=== PATIENT | female | born 1995 | race African-American/Black ===

== ENCOUNTER 2016-08-30 13:32 | Outpatient (CLI) ==
[2015-10-14 18:56] VITALS: BMI 24.5
[2016-08-30 14:19] LABS: FLU INTERNAL QC INTERNAL QC VALID; RAPID FLU A NEGATIVE (NEGATIVE); RAPID FLU B NEGATIVE (NEGATIVE)
== END 2016-08-30 13:33 | disposition home or self-care (01) ==
LOC: LAB 13:32
PROVIDERS: ATTEND Nurse Practitioner Family
DX: R52 Pain, unspecified (principal); R11.2 Nausea with vomiting, unspecified; R53.83 Other fatigue
CPT/HCPCS: 87804

== ENCOUNTER 2017-02-13 20:08 | Emergency (ER) ==
[2017-02-13 20:13] VITALS: BP 118/90; TEMP 99; BMI 26.4
[2017-02-13] MEDS ORDERED: BENADRYL IM STA (20:18)
[2017-02-13] MEDS ORDERED: DECADRON 4 MG/ML SDV IM STA (20:18)
--- NOTE | 2017-02-13 20:21 | ED.PDOC ---
General ED Provider: Dr. GEOVANNY DODSON-ER Chief Complaint: Rash Stated Complaint: franki got an itchy rash on my arms and legs --it comes and goes- -no one else has the rash Time Seen by Physician: 20:15 Mode of Arrival: Walk-In Information Source: Patient Exam Limitations: No limitations Primary Care Provider: TWIN SCOTT Nursing and Triage Documentation Reviewed and Agree: Yes Skin Complaint Exam - Skin Rash/Itching Complaint/Exam Onset/Duration: 4 weeks Symptoms Are: Still present Initial Severity: Mild Current Severity: Mild Location: arms and legs Potential Exposures: Reports: Unknown Aggravating: Reports: Heat, Clothing Associated Signs and Symptoms: Denies: Difficulty breathing, Fever, Chills Skin Findings: Present: Maculae, Dry scaly skin Differential Diagnoses: Allergic Reaction, Contact Dermatitis Review of Systems - Review Of Systems Constitutional: Reports: No symptoms Eyes: Reports: No symptoms Ears, Nose, Mouth, Throat: Reports: No symptoms Respiratory: Reports: No symptoms Cardiac: Reports: No symptoms GI: Reports: No symptoms : Reports: No symptoms Musculoskeletal: Reports: No symptoms Skin: Reports: Rash Neurological: Reports: No symptoms Endocrine: Reports: No symptoms Hematologic/Lymphatic: Reports: No symptoms All Other Systems: Reviewed and Negative Past Medical History - Past Medical History Previously Healthy: Yes Endocrine: Reports: None Cardiovascular: Reports: None Respiratory: Reports: None Hematological: Reports: None Gastrointestinal: Reports: None Genitourinary: Reports: None Neuro/Psych: Reports: None Musculoskeletal: Reports: None Cancer: Reports: None Last Menstrual Period: DOESN'T HAVE REGULAR PERIODS DUE TO DEPO PROVERA - Surgical History General Surgical History: Reports: Tonsillectomy - Family History Family History: Reports: Unknown - Social History Smoking Status: Never smoker Hx Substance Use: No Alcohol Screening: None Lives: With family Physical Exam - Physical Exam Appearance: Well-appearing, No pain distress, Well-nourished Eyes: NELLI, EOMI, Conjunctiva clear ENT: Ears normal, Nose normal, Oropharynx normal Neck: Supple Respiratory: Airway patent Cardiovascular: RRR GI/: Soft, Nontender, No masses, Bowel sounds normal, No Organomegaly Musculoskeletal: Normal strength, ROM intact, No edema, No calf tenderness Skin: Warm, Dry, Normal color Neurological: Sensation intact Psychiatric: Affect appropriate, Mood appropriate, Anxious Critical Care Note - Critical Care Note Total Time (mins): 0 Course - Course Orders, Labs, Meds: Orders Category Date Time Status Dexamethasone 4 mg/ml Inj [Decadron 4 mg/ml Sdv] MEDS 02/13/17 20:18 Discontinued 8 mg IM ONCE STA Diphenhydramine Inj [Benadryl] MEDS 02/13/17 20:18 Discontinued 50 mg IM ONCE STA Medications Discontinued Medications Generic Name Dose Route Start Last Admin Trade Name Robert PRN Reason Stop Dose Admin Dexamethasone Sodium Phosphate 8 mg 02/13/17 20:18 Decadron 4 Mg/Ml Sdv IM 02/13/17 20:19 ONCE STA Diphenhydramine HCl 50 mg 02/13/17 20:18 Benadryl IM 02/13/17 20:19 ONCE STA Vital Signs: Temp Pulse Resp BP Pulse Ox 02/13/17 20:09 99.0 F 102 H 16 118/90 96 Departure - Departure Time of Disposition: 20:21 Disposition: HOME SELF-CARE Discharge Problem: Pruritic rash Instructions: Acute Rash (ED) Condition: Good Pt referred to PMD for follow-up: Yes Additional Instructions: prednisone 30mg x 3 days then 20mg x 2 days then 10mg x 2 days--lidex ointment apply bid in a thin layer and cover with sarna lotion to help with itching --f/ u with pcp in 72hrs if not better Allergies/Adverse Reactions: Allergies Sulfa (Sulfonamide Antibiotics) Adverse Reaction (Verified 02/13/17 20:13) Home Medications: Ambulatory Orders Medroxyprogesterone Acetate [Depo-Provera] 150 mg IM DIRECTED 08/30/16 Disposition Discussed With: Patient
== END 2017-02-13 20:47 | disposition home or self-care (01) ==
LOC: ED 20:08
DX: R21 Rash and other nonspecific skin eruption (principal); L29.9 Pruritus, unspecified
CPT/HCPCS: 96372; 99282

== ENCOUNTER 2017-03-07 15:01 | Outpatient (CLI) ==
[2017-03-07 15:37] LABS: BASOPHILS % (AUTO) 0.3 % (0.0-3.0); EOSINOPHILS # (AUTO) 0.1 K/ul (0.0-0.7); EOSINOPHILS % (AUTO) 1.1 % (0.0-7.0); HEMATOCRIT 38.9 % (37.0-47.0); HEMOGLOBIN 13.6 g/dl (12.0-16.0); IMMATURE GRANULOCYTE % (AUTO) 0.2 % (0.0-5.0); LYMPHOCYTES # (AUTO) 2.9 K/uL (0.60-3.4); LYMPHOCYTES % (AUTO) 33.1 (10.0-50.0); MEAN CORPUSCULAR HEMOGLOBIN 29.6 pg (27.0-31.0); MEAN CORPUSCULAR VOLUME 84.7 fl (81.0-99.0); MONOCYTES # (AUTO) 0.3 K/uL (0.4-2.0); MONOCYTES % (AUTO) 3.2 (0-10); NEUTROPHILS # (AUTO) 5.4 K/ul (2.0-6.9); NEUTROPHILS % (AUTO) 62.1; PLATELET COUNT 226 10^3/uL (140-440); RED BLOOD COUNT 4.59 10^6/ul (4.20-5.40); WHITE BLOOD COUNT 8.77 K/ul (4.6-10.2)
[2017-03-07 15:48] LABS: ALBUMIN 4.6 g/dL (3.4-5.0); ALBUMIN/GLOBULIN RATIO 1.44; BILIRUBIN,TOTAL 0.88 mg/dL (0.00-1.20); BUN/CREATININE RATIO 7.86; CALCIUM 9.8 mg/dL (8.2-10.2); CREATININE 0.89 mg/dL (0.60-1.30); POTASSIUM 3.4 mmol/L (3.5-5.10); TOTAL PROTEIN 7.8 g/dL (6.4-8.2)
[2017-03-07 16:01] LABS: ANION GAP 13.4
[2017-03-07 16:07] LABS: ERYTHROCYTE SEDIMENTATION RATE 8 mm/hr (0-20); ESR INTERNAL QC INTERNAL QC VALID
== END 2017-03-07 15:02 | disposition home or self-care (01) ==
LOC: LAB 15:01
PROVIDERS: ATTEND Nurse Practitioner Family
DX: L50.9 Urticaria, unspecified (principal)
CPT/HCPCS: 36415; 80053; 85025; 85651; 86038

== ENCOUNTER 2017-04-17 19:23 | Emergency (ER) ==
[2017-04-17 19:33] VITALS: BP 140/89; TEMP 100.1; BMI 27.9
[2017-04-17 19:51] LABS: URINE PREGNANCY INTERNAL QC INTERNAL QC VALID
[2017-04-17 19:58] LABS: BASOPHILS % (AUTO) 0.3 % (0.0-3.0); EOSINOPHILS # (AUTO) 0.1 K/ul (0.0-0.7); EOSINOPHILS % (AUTO) 1.2 % (0.0-7.0); HEMOGLOBIN 13.1 g/dl (12.0-16.0); IMMATURE GRANULOCYTE % (AUTO) 0.1 % (0.0-5.0); LYMPHOCYTES # (AUTO) 3.4 K/uL (0.60-3.4); MEAN CORPUSCULAR HEMOGLOBIN 29.6 pg (27.0-31.0); MEAN CORPUSCULAR HGB CONC 35.4 (31.8-35.4); MEAN CORPUSCULAR VOLUME 83.5 fl (81.0-99.0); MONOCYTES # (AUTO) 0.5 K/uL (0.4-2.0); MONOCYTES % (AUTO) 4.5 (0-10); NEUTROPHILS # (AUTO) 6.2 K/ul (2.0-6.9); NEUTROPHILS % (AUTO) 60.9; PLATELET COUNT 227 10^3/uL (140-440); RED BLOOD COUNT 4.43 10^6/ul (4.20-5.40); WHITE BLOOD COUNT 10.24 K/ul (4.6-10.2)
[2017-04-17 20:14] LABS: ANION GAP 15.3; BUN/CREATININE RATIO 10.58; CALCIUM 9.6 mg/dL (8.2-10.2); CREATININE 0.85 mg/dL (0.60-1.30); POTASSIUM 3.3 mmol/L (3.5-5.10)
--- NOTE | 2017-04-17 20:45 | CT ---
EXAM: CT brain without contrast HISTORY: [facility] TECHNIQUE: Multi-slice sequential. Coronal and sagital reformations were performed. COMPARISON: 07/24/2013 FINDINGS: There is no acute intracranial hemorrhage, extraxial fluid collection, mass affect, or midlineshift.T he ventricles are normal in size.The lofton-white matter interface is maintained.The basal cisterns are patent.The visualized paranasal sinuses are clear. Mastoid air cells are well aerated.The calvarium is unremarkable. IMPRESSION: No acute intracranial findings.
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
--- NOTE | 2017-04-17 20:57 | CT ---
EXAM: CT cervical spine without contrast HISTORY: [facility] TECHNIQUE: Multi-slice transaxial helical with coronal and sagittal reformatted views. 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 Otherwise the visualized vertebral body heights and interv ertebral disc spaces appear preserved. No evidence of listhesis is seen. The articular facets appea r aligned. The craniocervical junction appears unremarkable. The central canal and neural foramina appear patent. Upper lung zones appear clear. The visualized bilateral mastoid air cells appear well aerated. IMPRESSION: 1. No acute osseous abnormality. 2. 

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
[2017-04-17] MEDS ORDERED: NORCO 5-325 PO STA (21:24)
[2017-04-17] MEDS ORDERED: KEFLEX PO STA (21:24)
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
== END 2017-04-17 21:49 | disposition home or self-care (01) ==
LOC: ED 19:23
DX: S00.83XA Contusion of other part of head, initial encounter (principal); M25.562 Pain in left knee; R07.89 Other chest pain; S00.81XA Abrasion of other part of head, initial encounter; S01.512A Laceration without foreign body of oral cavity, initial encounter; V89.2XXA Person injured in unspecified motor-vehicle accident, traffic, initial encounter
CPT/HCPCS: 36415; 80048; 81025; 85025; 99283